=== PATIENT | female | born 1935 | race Caucasian/White ===

== ENCOUNTER 2017-10-12 07:39 | Inpatient (IN) ==
[2017-10-12 08:06] LABS: Basophils # 0.1 10*3/uL (0.0-0.2); Basophils % 0.5 % (0.0-0.8); Eosinophils # 0.1 10*3/uL (0.0-0.87); Eosinophils % 0.5 % (0.00-10.9); Hematocrit 40.8 VOL% (35.7-47.0); Hemoglobin 13.9 GM/DL (12.0-16.0); Immature Granulocytes % 0.2 %; Immature Granulocytes Absolute 0.03 #; Lymphocytes # 1.9 10*3/uL (1.4-4.0); Mean Corpuscular HGB Conc 34.1 GM/DL (32-36); Mean Corpuscular Hemoglobin 33 PG (27-34); Mean Corpuscular Volume 96.2 FL (87-102); Mean Platelet Volume 10.3 FL (9.6-12.0); Monocytes # 1.9 10*3/uL (0.11-0.8); Monocytes % 14.9 % (1.7-12.7); Neutrophils # 8.7 10*3/uL (1.4-7.4); Neutrophils % 68.9 % (38.7-73.9); Platelet Count 220 T/CUMM (130-400); Red Blood Count 4.24 MC/CUMM (3.8-5.5); Red Cell Distribution Width 13.9 % (9.3-17.3); White Blood Count 12.6 T/CUMM (4-12)
[2017-10-12 08:27] LABS: Calcium 9.3 MG/DL (8.5-10.1); Osmolality,Calculated 277.7 MOS/KG (273-304); Potassium 4.1 MMOL/L (3.5-5.1)
[2017-10-12 08:43] LABS: Amorphous Crystals,Urine Occasional /HPF (Few); Apearance,Urine CLEAR (Clear); Bacteria,Urine Occasional /HPF (Few); Bilirubin,Urine Negative (Negative); Blood, Urine Moderate mg/dL (Negative); Glucose,Urine (UA) Negative (Negative); Ketones,Urine Negative (Negative); Mucus,Urine Occasional /LPF (Occasional); Nitrite,Urine Positive (Negative); Protein,Urine Negative; RBC,Urine 9 /HPF (0-4); Squamous Epithelial Cell,Urine Occasional /HPF (0-10); Urine Color Yellow (Yellow); Urine Urobilinogen < 2.0 EU/DL (0.2-1.0); WBC,Urine 9 /HPF (0-6)
[2017-10-12] MEDS ORDERED: DILTIAZEM 50 MG/10 ML VIAL IV STA ×2 (10:02→10:57)
[2017-10-12] MEDS ORDERED: DILTIAZEM INJ 100 MG in SODIUM CHLORIDE 0.9% 100 ML IV SCH (10:30)
[2017-10-12] MEDS ORDERED: ONDANSETRON 4 MG/2 ML VIAL IV PRN (10:58)
[2017-10-12] MEDS ORDERED: ACETAMINOPHEN 325 MG TABLET PO PRN (10:58)
[2017-10-12 12:11] LABS: Alanine Aminotransferase 20 U/L (13-56); Albumin 3.5 G/DL (3.4-5.0); Alkaline Phosphatase 120 U/L (45-117); Aspartate Amino Transferase 19 U/L (0-37); Bilirubin,Total < 0.39 MG/DL (0.2-1.0); Blood Urea Nitrogen 16 MG/DL (7-18); Calcium 9.3 MG/DL (8.5-10.1); Glucose 110 MG/DL (74-106); Potassium 4.2 MMOL/L (3.5-5.1); Sodium 136 MMOL/L (136-145)
[2017-10-12 12:21] LABS: Barbiturates Screen,Urine Negative (Negative); Benzodiazepines Screen,Urine Positive (Negative); Cannabinoid Screen,Urine Negative (Negative); Opiate Screen,Urine Negative (Negative); Phencyclidine Screen,Urine Negative (Negative)
[2017-10-12] MEDS: SODIUM CHLORIDE 0.45% 1,000 ML IV SCH (12:47)
[2017-10-12] MEDS ORDERED: traMADol 50 MG TABLET PO PRN (13:49)
[2017-10-12] MEDS: MUPIROCIN 2% OINT 22 GM TUBE TOP SCH ×2 (16:01→21:03)
[2017-10-12] MEDS: POTASSIUM CHLORIDE 8 MEQ CAPSULE PO SCH ×2 (16:03→21:02)
[2017-10-12] MEDS: ACETAMINOPHEN 325 MG TABLET PO PRN (16:06)
[2017-10-12] MEDS: CALCIUM (CARBONATE)/VITAMIN D 600 MG-400 UNIT TABLET PO SCH (18:41)
[2017-10-12] MEDS ORDERED: APIXABAN 2.5 MG TABLET PO SCH (21:00)
[2017-10-12] MEDS: APIXABAN 5 MG TABLET PO SCH (21:02)
[2017-10-12] MEDS: DONEPEZIL 10 MG TABLET PO SCH (21:02)
[2017-10-12] MEDS: DOCUSATE SODIUM 100 MG CAPSULE PO SCH (21:02)
[2017-10-12] MEDS: METHENAMINE HIPPURATE 1 GM TABLET PO SCH (21:02)
[2017-10-12] MEDS: CLORAZEPATE 7.5 MG TABLET PO SCH (21:02)
[2017-10-12] MEDS: SOTALOL 80 MG TABLET PO SCH (21:03)
[2017-10-13 06:28] LABS: Basophils % 0.4 % (0.0-0.8); Eosinophils # 0.1 10*3/uL (0.0-0.87); Hematocrit 35.5 VOL% (35.7-47.0); Hemoglobin 11.8 GM/DL (12.0-16.0); Immature Granulocytes % 0.2 %; Immature Granulocytes Absolute 0.02 #; Lymphocytes # 2.5 10*3/uL (1.4-4.0); Lymphocytes % 24.6 % (21.3-54.2); Mean Corpuscular HGB Conc 33.2 GM/DL (32-36); Mean Corpuscular Hemoglobin 32 PG (27-34); Mean Platelet Volume 10.8 FL (9.6-12.0); Monocytes # 2.1 10*3/uL (0.11-0.8); Monocytes % 21.1 % (1.7-12.7); Neutrophils # 5.3 10*3/uL (1.4-7.4); Neutrophils % 52.7 % (38.7-73.9); Platelet Count 199 T/CUMM (130-400); Red Blood Count 3.66 MC/CUMM (3.8-5.5); Red Cell Distribution Width 13.8 % (9.3-17.3)
[2017-10-13 06:41] LABS: Calcium 8.5 MG/DL (8.5-10.1); Potassium 4.2 MMOL/L (3.5-5.1)
[2017-10-13 06:57] LABS: Band Neutrophils 1 % (0-10); Hypochromasia 1+; Lymphocytes 29 % (20-55); Platelet Estimate Adequate; Segmented Neutrophils 55 % (50-85); Total Cells Counted 100
[2017-10-13] MEDS: ACETAMINOPHEN 325 MG TABLET PO PRN ×2 (06:59→12:33)
[2017-10-13] MEDS ORDERED: clonazePAM 0.5 MG TABLET PO SCH (09:00)
[2017-10-13] MEDS ORDERED: ASPIRIN EC 81 MG TABLET PO SCH (09:00)
[2017-10-13] MEDS ORDERED: buPROPion XL 150 MG TABLET PO SCH (09:00)
[2017-10-13] MEDS ORDERED: SOTALOL 80 MG TABLET PO SCH (09:00)
[2017-10-13] MEDS: CLORAZEPATE 7.5 MG TABLET PO SCH ×2 (10:35→21:42)
[2017-10-13] MEDS: METHENAMINE HIPPURATE 1 GM TABLET PO SCH ×2 (10:36→21:42)
[2017-10-13] MEDS: POTASSIUM CHLORIDE 8 MEQ CAPSULE PO SCH ×3 (10:36→21:43)
[2017-10-13] MEDS: LISINOPRIL 10 MG TABLET PO SCH (10:36)
[2017-10-13] MEDS: PANTOPRAZOLE 40 MG TABLET PO SCH (10:37)
[2017-10-13] MEDS: CALCIUM (CARBONATE)/VITAMIN D 600 MG-400 UNIT TABLET PO SCH ×2 (10:42→18:44)
[2017-10-13] MEDS: SERTRALINE 100 MG TABLET PO SCH (10:42)
[2017-10-13] MEDS: risperiDONE 1 MG TABLET PO SCH (10:42)
[2017-10-13] MEDS: DOCUSATE SODIUM 100 MG CAPSULE PO SCH ×2 (10:46→21:42)
[2017-10-13] MEDS: APIXABAN 2.5 MG TABLET PO SCH ×2 (10:46→21:42)
[2017-10-13] MEDS: POLYETHYLENE GLYCOL POWDER 17 GM PACK PO SCH (10:47)
[2017-10-13] MEDS: DILTIAZEM CD 120 MG CAPSULE PO SCH (10:54)
[2017-10-13] MEDS: MUPIROCIN 2% OINT 22 GM TUBE TOP SCH ×3 (11:00→21:42)
[2017-10-13] MEDS ORDERED: POLYETHYLENE GLYCOL POWDER 17 GM PACK PO PRN (11:00)
[2017-10-13] MEDS: SODIUM CHLORIDE 0.45% 1,000 ML IV SCH (18:45)
[2017-10-13] MEDS: buPROPion XL 150 MG TABLET PO SCH (21:42)
[2017-10-13] MEDS: DONEPEZIL 10 MG TABLET PO SCH (21:42)
[2017-10-13] MEDS: ASPIRIN EC 81 MG TABLET PO SCH (21:42)
[2017-10-13] MEDS: SOTALOL 80 MG TABLET PO SCH (21:43)
[2017-10-14] MEDS: ACETAMINOPHEN 325 MG TABLET PO PRN ×2 (06:27→18:00)
[2017-10-14] MEDS: POTASSIUM CHLORIDE 8 MEQ CAPSULE PO SCH ×3 (09:09→20:58)
[2017-10-14] MEDS: CALCIUM (CARBONATE)/VITAMIN D 600 MG-400 UNIT TABLET PO SCH ×2 (09:09→17:25)
[2017-10-14] MEDS: PANTOPRAZOLE 40 MG TABLET PO SCH (09:10)
[2017-10-14] MEDS: METHENAMINE HIPPURATE 1 GM TABLET PO SCH ×2 (09:10→20:52)
[2017-10-14] MEDS: CLORAZEPATE 7.5 MG TABLET PO SCH ×2 (09:10→20:49)
[2017-10-14] MEDS: APIXABAN 2.5 MG TABLET PO SCH ×2 (09:10→20:49)
[2017-10-14] MEDS: DOCUSATE SODIUM 100 MG CAPSULE PO SCH ×2 (09:11→20:50)
[2017-10-14] MEDS: SOTALOL 80 MG TABLET PO SCH ×2 (09:11→20:50)
[2017-10-14] MEDS: LISINOPRIL 10 MG TABLET PO SCH (09:11)
[2017-10-14] MEDS: SERTRALINE 100 MG TABLET PO SCH (09:12)
[2017-10-14] MEDS: DILTIAZEM CD 120 MG CAPSULE PO SCH (09:12)
[2017-10-14] MEDS: MUPIROCIN 2% OINT 22 GM TUBE TOP SCH ×3 (09:16→20:50)
[2017-10-14] MEDS: ASPIRIN EC 81 MG TABLET PO SCH (20:49)
[2017-10-14] MEDS: CIPROFLOXACIN 250 MG TABLET PO SCH (20:49)
[2017-10-14] MEDS: DONEPEZIL 10 MG TABLET PO SCH (20:50)
[2017-10-14] MEDS: clonazePAM 0.5 MG TABLET PO SCH (20:50)
[2017-10-14] MEDS: risperiDONE 1 MG TABLET PO SCH ×2 (20:57→21:07)
[2017-10-14] MEDS: buPROPion XL 150 MG TABLET PO SCH (21:06)
[2017-10-14] MEDS: POLYETHYLENE GLYCOL POWDER 17 GM PACK PO SCH (21:07)
[2017-10-14] MEDS: APIXABAN 5 MG TABLET PO SCH (21:07)
[2017-10-14] MEDS: SODIUM CHLORIDE 0.45% 1,000 ML IV SCH (23:15)
[2017-10-15 07:06] LABS: Calcium 8.7 MG/DL (8.5-10.1); Osmolality,Calculated 277.7 MOS/KG (273-304); Potassium 4.2 MMOL/L (3.5-5.1)
[2017-10-15] MEDS: SOTALOL 80 MG TABLET PO SCH ×2 (11:17→21:45)
[2017-10-15] MEDS: CALCIUM (CARBONATE)/VITAMIN D 600 MG-400 UNIT TABLET PO SCH ×2 (11:20→18:07)
[2017-10-15] MEDS: CLORAZEPATE 7.5 MG TABLET PO SCH ×2 (11:21→21:45)
[2017-10-15] MEDS: CIPROFLOXACIN 250 MG TABLET PO SCH ×2 (11:21→21:45)
[2017-10-15] MEDS: POTASSIUM CHLORIDE 8 MEQ CAPSULE PO SCH ×3 (11:21→21:44)
[2017-10-15] MEDS: LISINOPRIL 10 MG TABLET PO SCH (11:22)
[2017-10-15] MEDS: APIXABAN 2.5 MG TABLET PO SCH ×2 (11:22→21:44)
[2017-10-15] MEDS: DOCUSATE SODIUM 100 MG CAPSULE PO SCH ×2 (11:22→21:44)
[2017-10-15] MEDS: SERTRALINE 100 MG TABLET PO SCH (11:22)
[2017-10-15] MEDS: PANTOPRAZOLE 40 MG TABLET PO SCH (11:28)
[2017-10-15] MEDS: METHENAMINE HIPPURATE 1 GM TABLET PO SCH ×2 (11:29→21:45)
[2017-10-15] MEDS: DILTIAZEM CD 120 MG CAPSULE PO SCH (13:14)
[2017-10-15] MEDS: MUPIROCIN 2% OINT 22 GM TUBE TOP SCH ×3 (13:30→21:44)
[2017-10-15] MEDS ORDERED: MAGNESIUM SULF RIDER 50 ML IV ONE (17:55)
[2017-10-15] MEDS ORDERED: TUBERCULIN SKIN TEST 0.1 ML SYRINGE INTRADERM ONE (18:01)
[2017-10-15] MEDS ORDERED: MAGNESIUM SULF RIDER 2 GM in PREMIX 1 EACH IV PRN (18:02)
[2017-10-15] MEDS ORDERED: MAGNESIUM SULF RIDER 4 GM in PREMIX 1 EACH IV PRN (18:02)
[2017-10-15] MEDS: ACETAMINOPHEN 325 MG TABLET PO PRN (18:20)
[2017-10-15] MEDS: risperiDONE 1 MG TABLET PO SCH (21:44)
[2017-10-15] MEDS: DONEPEZIL 10 MG TABLET PO SCH (21:44)
[2017-10-15] MEDS: buPROPion XL 150 MG TABLET PO SCH (21:45)
[2017-10-15] MEDS: clonazePAM 0.5 MG TABLET PO SCH (21:45)
[2017-10-15] MEDS: ASPIRIN EC 81 MG TABLET PO SCH (21:45)
[2017-10-16] MEDS: SOTALOL 80 MG TABLET PO SCH (07:21)
[2017-10-16] MEDS: SODIUM CHLORIDE 0.45% 1,000 ML IV SCH (07:23)
[2017-10-16] MEDS ORDERED: TUBERCULIN SKIN TEST 0.1 ML SYRINGE INTRADERM ONE (08:00)
[2017-10-16] MEDS ORDERED: SOTALOL 80 MG TABLET PO SCH (09:00)
[2017-10-16] MEDS: CLORAZEPATE 7.5 MG TABLET PO SCH (09:39)
[2017-10-16] MEDS: CALCIUM (CARBONATE)/VITAMIN D 600 MG-400 UNIT TABLET PO SCH (09:39)
[2017-10-16] MEDS: METHENAMINE HIPPURATE 1 GM TABLET PO SCH (09:40)
[2017-10-16] MEDS: LISINOPRIL 10 MG TABLET PO SCH (09:40)
[2017-10-16] MEDS: SERTRALINE 100 MG TABLET PO SCH (09:40)
[2017-10-16] MEDS: POTASSIUM CHLORIDE 8 MEQ CAPSULE PO SCH (09:40)
[2017-10-16] MEDS: DOCUSATE SODIUM 100 MG CAPSULE PO SCH (09:40)
[2017-10-16] MEDS: PANTOPRAZOLE 40 MG TABLET PO SCH (09:40)
[2017-10-16] MEDS: APIXABAN 2.5 MG TABLET PO SCH (09:40)
[2017-10-16] MEDS: DILTIAZEM CD 120 MG CAPSULE PO SCH (09:41)
[2017-10-16] MEDS: MUPIROCIN 2% OINT 22 GM TUBE TOP SCH (09:41)
[2017-10-16] MEDS: CIPROFLOXACIN 250 MG TABLET PO SCH (09:41)
[2017-10-16 12:16] VITALS: BP 98/68
== END 2017-10-16 14:02 | DRG 309 ==
LOC: EDUNIT# → EDBD → N.ED 07:39 → N.EDINP 10:58 → N.TELEN 11:26
PROVIDERS: ADMIT Family Medicine; ATTEND Family Medicine

== ENCOUNTER 2017-10-25 22:06 | Inpatient (IN) ==
[2017-10-25 23:04] LABS: Basophils # 0.1 10*3/uL (0.0-0.2); Basophils % 0.4 % (0.0-0.8); Eosinophils # 0.2 10*3/uL (0.0-0.87); Eosinophils % 0.7 % (0.00-10.9); Hematocrit 34.9 VOL% (35.7-47.0); Hemoglobin 11.3 GM/DL (12.0-16.0); Immature Granulocytes % 0.5 %; Immature Granulocytes Absolute 0.11 #; Lymphocytes # 1.2 10*3/uL (1.4-4.0); Lymphocytes % 5.3 % (21.3-54.2); Mean Corpuscular HGB Conc 32.4 GM/DL (32-36); Mean Corpuscular Hemoglobin 32 PG (27-34); Mean Corpuscular Volume 99.7 FL (87-102); Mean Platelet Volume 9.8 FL (9.6-12.0); Monocytes # 1.6 10*3/uL (0.11-0.8); Monocytes % 7.1 % (1.7-12.7); Neutrophils # 19.7 10*3/uL (1.4-7.4); Platelet Count 439 T/CUMM (130-400); Red Cell Distribution Width 13.2 % (9.3-17.3); White Blood Count 22.9 T/CUMM (4-12)
[2017-10-25 23:24] LABS: Alanine Aminotransferase 17 U/L (13-56); Albumin 2.7 G/DL (3.4-5.0); Alkaline Phosphatase 106 U/L (45-117); Aspartate Amino Transferase 16 U/L (0-37); Bilirubin,Total < 0.39 MG/DL (0.2-1.0); Calcium 8.3 MG/DL (8.5-10.1); Total Protein 7.2 G/DL (6.4-8.3)
[2017-10-25 23:25] LABS: Blood Urea Nitrogen 24 MG/DL (7-18); Glucose 142 MG/DL (74-106); Osmolality,Calculated 284.4 MOS/KG (273-304); Potassium 4.2 MMOL/L (3.5-5.1); Sodium 140 MMOL/L (136-145)
[2017-10-25] MEDS ORDERED: VANCOMYCIN INJ 1,250 MG in SODIUM CHLORIDE 0.9% 250 ML IV STA (23:46)
[2017-10-25] MEDS ORDERED: CEFEPIME 2,000 MG in SODIUM CHLORIDE 0.9% 100 ML IV STA (23:46)
[2017-10-25] MEDS ORDERED: SODIUM CHLORIDE 0.9% 2,000 ML IV STA (23:46)
[2017-10-25] MEDS ORDERED: VANCOMYCIN INJ 1,000 MG in SODIUM CHLORIDE 0.9% 250 ML IV STA (23:53)
[2017-10-26 00:52] LABS: Lactic Acid 1.6 MMOL/L (0.4-2.0)
[2017-10-26] MEDS ORDERED: ONDANSETRON 4 MG/2 ML VIAL IV PRN (01:53)
[2017-10-26] MEDS ORDERED: ACETAMINOPHEN 325 MG TABLET PO PRN (01:53)
[2017-10-26 03:23] LABS: Lymphocytes 6 % (20-55); Platelet Estimate Normal; Segmented Neutrophils 86 % (50-85); Total Cells Counted 100
[2017-10-26 03:58] LABS: Apearance,Urine Slightly Hazy (Clear); Bacteria,Urine Occasional /HPF (Few); Bilirubin,Urine Negative (Negative); Blood, Urine Large mg/dL (Negative); Glucose,Urine (UA) Negative (Negative); Ketones,Urine Negative (Negative); Mucus,Urine Occasional /LPF (Occasional); Nitrite,Urine Negative (Negative); Protein,Urine Negative; RBC,Urine 70 /HPF (0-4); Squamous Epithelial Cell,Urine Occasional /HPF (0-10); Urine Color Yellow (Yellow); Urine Specific Gravity 1.014 (1.001-1.035); Urine Urobilinogen < 2.0 EU/DL (0.2-1.0); WBC,Urine 50 /HPF (0-6)
[2017-10-26] MEDS: PANTOPRAZOLE 40 MG TABLET PO SCH (08:24)
[2017-10-26] MEDS: DOCUSATE SODIUM 100 MG CAPSULE PO SCH ×2 (08:24→21:26)
[2017-10-26] MEDS ORDERED: CEFEPIME 2,000 MG in SODIUM CHLORIDE 0.9% 100 ML IV SCH (10:00)
[2017-10-26] MEDS ORDERED: cefTRIAXone 1,000 MG VIAL IV SCH (10:30)
[2017-10-26] MEDS: cefTRIAXone 1,000 MG in SYRINGE 1 EACH IV SCH (12:34)
[2017-10-26] MEDS: clonazePAM 0.5 MG TABLET PO SCH (12:34)
[2017-10-26] MEDS: FUROSEMIDE 20 MG TABLET PO SCH (15:23)
[2017-10-26] MEDS: POTASSIUM CHLORIDE 8 MEQ CAPSULE PO SCH ×2 (15:23→21:26)
[2017-10-26] MEDS: MUPIROCIN 2% OINT 22 GM TUBE TOP SCH ×2 (15:24→21:25)
[2017-10-26] MEDS: SOTALOL 80 MG TABLET PO SCH (21:25)
[2017-10-26] MEDS: CLORAZEPATE 7.5 MG TABLET PO SCH (21:26)
[2017-10-26] MEDS: DONEPEZIL 10 MG TABLET PO SCH (21:26)
[2017-10-26] MEDS: risperiDONE 1 MG TABLET PO SCH (21:26)
[2017-10-26] MEDS: APIXABAN 2.5 MG TABLET PO SCH (21:26)
[2017-10-26] MEDS: METHENAMINE HIPPURATE 1 GM TABLET PO SCH (21:26)
[2017-10-27 04:26] LABS: Basophils # 0.1 10*3/uL (0.0-0.2); Basophils % 0.5 % (0.0-0.8); Eosinophils # 0.3 10*3/uL (0.0-0.87); Eosinophils % 2.5 % (0.00-10.9); Hematocrit 31.4 VOL% (35.7-47.0); Hemoglobin 9.9 GM/DL (12.0-16.0); Immature Granulocytes % 0.3 %; Immature Granulocytes Absolute 0.04 #; Lymphocytes % 17.5 % (21.3-54.2); Mean Corpuscular HGB Conc 31.5 GM/DL (32-36); Mean Corpuscular Hemoglobin 32 PG (27-34); Mean Corpuscular Volume 100.3 FL (87-102); Monocytes # 1.5 10*3/uL (0.11-0.8); Monocytes % 13.2 % (1.7-12.7); Neutrophils # 7.7 10*3/uL (1.4-7.4); Platelet Count 383 T/CUMM (130-400); Red Blood Count 3.13 MC/CUMM (3.8-5.5); Red Cell Distribution Width 13.3 % (9.3-17.3); White Blood Count 11.7 T/CUMM (4-12)
[2017-10-27 04:42] LABS: Osmolality,Calculated 283.1 MOS/KG (273-304); Potassium 3.9 MMOL/L (3.5-5.1)
[2017-10-27] MEDS ORDERED: FUROSEMIDE 20 MG/2 ML VIAL IV ONE (08:18)
[2017-10-27] MEDS: CLORAZEPATE 7.5 MG TABLET PO SCH ×2 (09:04→20:52)
[2017-10-27] MEDS: clonazePAM 0.5 MG TABLET PO SCH (09:05)
[2017-10-27] MEDS: METHENAMINE HIPPURATE 1 GM TABLET PO SCH ×2 (09:06→20:52)
[2017-10-27] MEDS: POTASSIUM CHLORIDE 8 MEQ CAPSULE PO SCH ×3 (09:06→20:52)
[2017-10-27] MEDS: PANTOPRAZOLE 40 MG TABLET PO SCH (09:07)
[2017-10-27] MEDS: SERTRALINE 100 MG TABLET PO SCH (09:07)
[2017-10-27] MEDS: DOCUSATE SODIUM 100 MG CAPSULE PO SCH ×2 (09:07→20:52)
[2017-10-27] MEDS: buPROPion XL 150 MG TABLET PO SCH (09:07)
[2017-10-27] MEDS: APIXABAN 2.5 MG TABLET PO SCH ×2 (09:07→20:53)
[2017-10-27] MEDS: LISINOPRIL 10 MG TABLET PO SCH (09:08)
[2017-10-27] MEDS: FUROSEMIDE 20 MG TABLET PO SCH ×2 (09:08→15:14)
[2017-10-27] MEDS: SOTALOL 80 MG TABLET PO SCH ×2 (09:08→20:52)
[2017-10-27] MEDS: MUPIROCIN 2% OINT 22 GM TUBE TOP SCH ×3 (09:08→21:02)
[2017-10-27] MEDS: DILTIAZEM CD 120 MG CAPSULE PO SCH (09:17)
[2017-10-27] MEDS: cefTRIAXone 1,000 MG in SYRINGE 1 EACH IV SCH (13:29)
[2017-10-27] MEDS: DONEPEZIL 10 MG TABLET PO SCH (20:52)
[2017-10-27] MEDS: risperiDONE 1 MG TABLET PO SCH (20:52)
[2017-10-28] MEDS: SERTRALINE 100 MG TABLET PO SCH (08:29)
[2017-10-28] MEDS: buPROPion XL 150 MG TABLET PO SCH (08:29)
[2017-10-28] MEDS: METHENAMINE HIPPURATE 1 GM TABLET PO SCH ×2 (08:29→20:52)
[2017-10-28] MEDS: SOTALOL 80 MG TABLET PO SCH ×2 (08:29→20:52)
[2017-10-28] MEDS: APIXABAN 2.5 MG TABLET PO SCH ×2 (08:29→20:52)
[2017-10-28] MEDS: DILTIAZEM CD 120 MG CAPSULE PO SCH (08:29)
[2017-10-28] MEDS: DOCUSATE SODIUM 100 MG CAPSULE PO SCH ×2 (08:30→20:52)
[2017-10-28] MEDS: PANTOPRAZOLE 40 MG TABLET PO SCH (08:30)
[2017-10-28] MEDS: POTASSIUM CHLORIDE 8 MEQ CAPSULE PO SCH ×3 (08:30→20:52)
[2017-10-28] MEDS: CLORAZEPATE 7.5 MG TABLET PO SCH ×2 (08:30→20:51)
[2017-10-28] MEDS: LISINOPRIL 10 MG TABLET PO SCH (08:30)
[2017-10-28] MEDS: FUROSEMIDE 20 MG TABLET PO SCH ×2 (08:30→15:05)
[2017-10-28] MEDS: clonazePAM 0.5 MG TABLET PO SCH (08:30)
[2017-10-28] MEDS: MUPIROCIN 2% OINT 22 GM TUBE TOP SCH ×3 (08:31→20:53)
[2017-10-28] MEDS: cefTRIAXone 1,000 MG in SYRINGE 1 EACH IV SCH (11:17)
[2017-10-28] MEDS: risperiDONE 1 MG TABLET PO SCH (20:52)
[2017-10-28] MEDS: DONEPEZIL 10 MG TABLET PO SCH (20:52)
[2017-10-29 05:25] LABS: Basophils # 0.1 10*3/uL (0.0-0.2); Basophils % 0.4 % (0.0-0.8); Eosinophils # 0.3 10*3/uL (0.0-0.87); Hemoglobin 10.2 GM/DL (12.0-16.0); Immature Granulocytes % 0.7 %; Immature Granulocytes Absolute 0.09 #; Lymphocytes # 2.1 10*3/uL (1.4-4.0); Lymphocytes % 15.8 % (21.3-54.2); Mean Corpuscular HGB Conc 31.9 GM/DL (32-36); Mean Corpuscular Hemoglobin 32 PG (27-34); Mean Corpuscular Volume 100.3 FL (87-102); Mean Platelet Volume 10.4 FL (9.6-12.0); Monocytes # 2.8 10*3/uL (0.11-0.8); Monocytes % 20.6 % (1.7-12.7); Neutrophils # 8.2 10*3/uL (1.4-7.4); Neutrophils % 60.5 % (38.7-73.9); Platelet Count 389 T/CUMM (130-400); Red Blood Count 3.19 MC/CUMM (3.8-5.5); Red Cell Distribution Width 13.5 % (9.3-17.3); White Blood Count 13.6 T/CUMM (4-12)
[2017-10-29 05:52] LABS: Eosinophils 2 % (0-10); Hypochromasia 1+; Lymphocytes 18 % (20-55); Platelet Estimate Adequate; Segmented Neutrophils 55 % (50-85); Total Cells Counted 100
[2017-10-29 05:59] LABS: Calcium 8.1 MG/DL (8.5-10.1); Osmolality,Calculated 284.1 MOS/KG (273-304); Potassium 3.8 MMOL/L (3.5-5.1)
[2017-10-29 06:00] LABS: Calcium 8.1 MG/DL (8.5-10.1); Osmolality,Calculated 280.4 MOS/KG (273-304); Potassium 3.8 MMOL/L (3.5-5.1)
[2017-10-29] MEDS: clonazePAM 0.5 MG TABLET PO SCH (10:06)
[2017-10-29] MEDS: LISINOPRIL 10 MG TABLET PO SCH (10:07)
[2017-10-29] MEDS: PANTOPRAZOLE 40 MG TABLET PO SCH (10:07)
[2017-10-29] MEDS: POTASSIUM CHLORIDE 8 MEQ CAPSULE PO SCH (10:07)
[2017-10-29] MEDS: APIXABAN 2.5 MG TABLET PO SCH (10:07)
[2017-10-29] MEDS: CLORAZEPATE 7.5 MG TABLET PO SCH (10:07)
[2017-10-29] MEDS: SOTALOL 80 MG TABLET PO SCH (10:07)
[2017-10-29] MEDS: buPROPion XL 150 MG TABLET PO SCH (10:07)
[2017-10-29] MEDS: SERTRALINE 100 MG TABLET PO SCH (10:08)
[2017-10-29] MEDS: DILTIAZEM CD 120 MG CAPSULE PO SCH (10:08)
[2017-10-29] MEDS: FUROSEMIDE 20 MG TABLET PO SCH (10:08)
[2017-10-29] MEDS: METHENAMINE HIPPURATE 1 GM TABLET PO SCH (10:08)
[2017-10-29] MEDS: MUPIROCIN 2% OINT 22 GM TUBE TOP SCH (10:14)
[2017-10-29] MEDS: DOCUSATE SODIUM 100 MG CAPSULE PO SCH (10:23)
[2017-10-29 11:19] VITALS: BP 139/67
[2017-10-29] MEDS: cefTRIAXone 1,000 MG in SYRINGE 1 EACH IV SCH (11:45)
== END 2017-10-29 13:40 | DRG 292 ==
LOC: EDBD → EDUNIT# → N.ED 22:06 → N.EDINP 10-26 01:53 → N.CC 10-26 02:32 → N.3E 10-27 16:26
PROVIDERS: ADMIT Family Medicine; ATTEND Family Medicine

== ENCOUNTER 2019-04-29 22:16 | Inpatient (IN) ==
[2019-04-29] MEDS ORDERED: LEVOFLOXACIN INJ 500 MG in PREMIX 1 EACH IV STA (23:07)
[2019-04-29] MEDS ORDERED: ONDANSETRON 4 MG/2 ML VIAL IV STA (23:07)
[2019-04-29] MEDS ORDERED: SODIUM CHLORIDE 0.9% 500 ML IV STA (23:07)
[2019-04-29 23:16] LABS: Basophils % 0.2 % (0.0-0.8); Eosinophils # 0.3 10*3/uL (0.0-0.87); Eosinophils % 1.7 % (0.00-10.9); Hematocrit 37.1 VOL% (35.7-47.0); Immature Granulocytes % 0.9 %; Immature Granulocytes Absolute 0.14 #; Lymphocytes # 1.5 10*3/uL (1.4-4.0); Lymphocytes % 9.1 % (21.3-54.2); Mean Corpuscular HGB Conc 32.3 GM/DL (32-36); Mean Corpuscular Volume 104.8 FL (87-102); Mean Platelet Volume 11.4 FL (9.6-12.0); Monocytes % 11.7 % (1.7-12.7); Neutrophils % 76.4 % (38.7-73.9); Platelet Count 161 T/CUMM (130-400); Red Blood Count 3.54 MC/CUMM (3.8-5.5); Red Cell Distribution Width 12.7 % (9.3-17.3); White Blood Count 16.4 T/CUMM (4-12)
[2019-04-29 23:24] LABS: INR 1.1; PT Patient Result 12.1 SECS (9.6-12.2)
[2019-04-29] MEDS ORDERED: ALBUTEROL NEB SOLN 5 MG/ML 20 ML/BOTTLE CONT NEB SCH (23:30)
[2019-04-29 23:33] LABS: Albumin 3.1 G/DL (3.4-5.0); Bilirubin,Total 0.8 MG/DL (0.2-1.0); Calcium 8.6 MG/DL (8.5-10.1); Osmolality,Calculated 273.8 MOS/KG (273-304); Total Protein 7.3 G/DL (6.4-8.3)
[2019-04-30 00:28] LABS: Apearance,Urine CLOUDY (Clear); Bacteria,Urine Many /HPF (Few); Bilirubin,Urine Negative (Negative); Blood, Urine Large mg/dL (Negative); Glucose,Urine (UA) Negative (Negative); Ketones,Urine Negative (Negative); Mucus,Urine Many /LPF (Occasional); Nitrite,Urine Positive (Negative); Protein,Urine Negative; RBC,Urine 84 /HPF (0-4); Squamous Epithelial Cell,Urine Occasional /HPF (0-10); Urine Color Yellow (Yellow); Urine Specific Gravity 1.016 (1.001-1.035); Urine Urobilinogen < 2.0 EU/DL (0.2-1.0); WBC,Urine 100 /HPF (0-6)
[2019-04-30] MEDS ORDERED: ACETAMINOPHEN 325 MG TABLET PO PRN (00:45)
[2019-04-30] MEDS ORDERED: hydrALAZINE 20 MG/1 ML VIAL IV PRN (00:45)
[2019-04-30] MEDS ORDERED: ONDANSETRON 4 MG/2 ML VIAL IV PRN (00:45)
[2019-04-30] MEDS ORDERED: ZALEPLON 5 MG CAPSULE PO PRN (00:45)
[2019-04-30] MEDS ORDERED: guaiFENesin/DM ER 600-30 MG TABLET PO PRN (00:45)
[2019-04-30] MEDS ORDERED: DOCUSATE SODIUM 100 MG CAPSULE PO PRN (00:45)
[2019-04-30] MEDS ORDERED: NICOTINE 21 MG/24 HR PATCH TRANSDERM PRN (00:45)
[2019-04-30] MEDS ORDERED: PROMETHAZINE 25 MG/1 ML VIAL IM PRN (00:45)
[2019-04-30] MEDS ORDERED: ENOXAPARIN 40 MG/0.4 ML SYRINGE SUBCUT SCH (01:00)
[2019-04-30] MEDS ORDERED: ALBUTEROL 2.5 MG/3 ML NEB RESP TX PRN (01:00)
[2019-04-30] MEDS: SODIUM CHLORIDE 0.9% 1,000 ML IV SCH ×2 (02:10→18:09)
[2019-04-30] MEDS: ALBUTEROL/IPRATROPIUM 3 ML NEB RESP TX SCH ×4 (02:58→20:10)
[2019-04-30] MEDS: MEROPENEM 500 MG in SODIUM CHLORIDE 0.9% 100 ML IV SCH ×2 (04:05→09:11)
[2019-04-30] MEDS ORDERED: VANCOMYCIN INJ 1,750 MG in SODIUM CHLORIDE 0.9% 500 ML IV ONE (05:00)
[2019-04-30 05:03] LABS: Basophils # 0.1 10*3/uL (0.0-0.2); Basophils % 0.3 % (0.0-0.8); Eosinophils # 0.4 10*3/uL (0.0-0.87); Eosinophils % 2.5 % (0.00-10.9); Hematocrit 32.9 VOL% (35.7-47.0); Hemoglobin 10.9 GM/DL (12.0-16.0); Immature Granulocytes % 0.6 %; Immature Granulocytes Absolute 0.09 #; Lymphocytes # 2.6 10*3/uL (1.4-4.0); Lymphocytes % 18.1 % (21.3-54.2); Mean Corpuscular HGB Conc 33.1 GM/DL (32-36); Mean Corpuscular Volume 100.6 FL (87-102); Mean Platelet Volume 11.6 FL (9.6-12.0); Monocytes % 16.4 % (1.7-12.7); Neutrophils % 62.1 % (38.7-73.9); Platelet Count 96 T/CUMM (130-400); Red Blood Count 3.27 MC/CUMM (3.8-5.5); Red Cell Distribution Width 12.7 % (9.3-17.3); White Blood Count 14.6 T/CUMM (4-12)
[2019-04-30 05:15] LABS: Band Neutrophils 2 % (0-10); Eosinophils 1 % (0-10); Lymphocytes 17 % (20-55); Platelet Estimate Decreased; Segmented Neutrophils 67 % (50-85); Total Cells Counted 100
[2019-04-30 05:16] LABS: Hypochromasia 1+
[2019-04-30 05:25] LABS: Albumin 2.6 G/DL (3.4-5.0); Bilirubin,Total 0.4 MG/DL (0.2-1.0); Calcium 7.8 MG/DL (8.5-10.1); Osmolality,Calculated 277.4 MOS/KG (273-304); Total Protein 6.1 G/DL (6.4-8.3)
[2019-04-30] MEDS ORDERED: AZITHROMYCIN INJ 500 MG in SODIUM CHLORIDE 0.9% 250 ML IV SCH (08:00)
[2019-04-30] MEDS ORDERED: DILTIAZEM CD 120 MG CAPSULE PO SCH (09:00)
[2019-04-30] MEDS: APIXABAN 2.5 MG TABLET PO SCH ×2 (09:11→20:43)
[2019-04-30] MEDS: PANTOPRAZOLE 40 MG TABLET PO SCH (09:11)
[2019-04-30] MEDS ORDERED: MAGNESIUM SULF RIDER 4 GM in PREMIX 1 EACH IV PRN (11:23)
[2019-04-30] MEDS: cefTRIAXone 1,000 MG in SYRINGE 1 EACH IV SCH (11:55)
[2019-04-30] MEDS: DOXYCYCLINE HYCLATE INJ 100 MG in SODIUM CHLORIDE 0.9% 100 ML IV SCH (12:40)
[2019-04-30] MEDS: DONEPEZIL 10 MG TABLET PO SCH (20:43)
[2019-04-30] MEDS: SOTALOL 80 MG TABLET PO SCH (20:43)
[2019-04-30] MEDS ORDERED: VANCOMYCIN INJ 1,250 MG in SODIUM CHLORIDE 0.9% 250 ML IV SCH (23:00)
[2019-05-01] MEDS: ALBUTEROL/IPRATROPIUM 3 ML NEB RESP TX SCH ×2 (01:24→07:33)
[2019-05-01] MEDS: DOXYCYCLINE HYCLATE INJ 100 MG in SODIUM CHLORIDE 0.9% 100 ML IV SCH ×2 (05:57→21:15)
[2019-05-01 06:22] LABS: Basophils % 0.3 % (0.0-0.8); Eosinophils # 0.5 10*3/uL (0.0-0.87); Eosinophils % 5.1 % (0.00-10.9); Hematocrit 32.1 VOL% (35.7-47.0); Hemoglobin 10.2 GM/DL (12.0-16.0); Immature Granulocytes % 0.7 %; Immature Granulocytes Absolute 0.07 #; Lymphocytes # 1.7 10*3/uL (1.4-4.0); Lymphocytes % 16.8 % (21.3-54.2); Mean Corpuscular HGB Conc 31.8 GM/DL (32-36); Mean Corpuscular Volume 104.6 FL (87-102); Mean Platelet Volume 11.8 FL (9.6-12.0); Monocytes % 20.1 % (1.7-12.7); Platelet Count 133 T/CUMM (130-400); Red Blood Count 3.07 MC/CUMM (3.8-5.5); Red Cell Distribution Width 12.7 % (9.3-17.3); White Blood Count 9.9 T/CUMM (4-12)
[2019-05-01 06:52] LABS: Atypical Lymphocytes Few; Band Neutrophils 1 % (0-10); Eosinophils 6 % (0-10); Lymphocytes 12 % (20-55); Segmented Neutrophils 68 % (50-85); Total Cells Counted 100
[2019-05-01 06:53] LABS: Macrocytosis Slight; Platelet Estimate Adequate
[2019-05-01 07:05] LABS: Calcium 7.7 MG/DL (8.5-10.1); Osmolality,Calculated 273.5 MOS/KG (273-304)
[2019-05-01] MEDS: cefTRIAXone 1,000 MG in SYRINGE 1 EACH IV SCH (09:49)
[2019-05-01] MEDS: APIXABAN 2.5 MG TABLET PO SCH ×2 (09:50→21:15)
[2019-05-01] MEDS: SOTALOL 80 MG TABLET PO SCH ×2 (09:50→21:14)
[2019-05-01] MEDS: PANTOPRAZOLE 40 MG TABLET PO SCH (09:50)
[2019-05-01] MEDS: MAGNESIUM SULF RIDER 2 GM in PREMIX 1 EACH IV PRN (10:08)
[2019-05-01] MEDS: DONEPEZIL 10 MG TABLET PO SCH (21:15)
[2019-05-02] MEDS: CLINDAMYCIN INJ 600 MG in PREMIX 1 EACH IV SCH ×4 (00:43→23:57)
[2019-05-02 06:10] LABS: Basophils % 0.3 % (0.0-0.8); Eosinophils # 0.3 10*3/uL (0.0-0.87); Hematocrit 34.4 VOL% (35.7-47.0); Hemoglobin 11.4 GM/DL (12.0-16.0); Immature Granulocytes % 0.5 %; Immature Granulocytes Absolute 0.05 #; Lymphocytes # 2.5 10*3/uL (1.4-4.0); Lymphocytes % 23.7 % (21.3-54.2); Mean Corpuscular HGB Conc 33.1 GM/DL (32-36); Mean Corpuscular Volume 101.8 FL (87-102); Mean Platelet Volume 12.2 FL (9.6-12.0); Monocytes % 25.7 % (1.7-12.7); Neutrophils % 46.8 % (38.7-73.9); Platelet Count 117 T/CUMM (130-400); Red Blood Count 3.38 MC/CUMM (3.8-5.5); Red Cell Distribution Width 12.5 % (9.3-17.3); White Blood Count 10.4 T/CUMM (4-12)
[2019-05-02 06:24] LABS: Calcium 7.9 MG/DL (8.5-10.1); Osmolality,Calculated 270.8 MOS/KG (273-304)
[2019-05-02 07:32] LABS: Band Neutrophils 1 % (0-10); Eosinophils 3 % (0-10); Hypochromasia 1+; Lymphocytes 25 % (20-55); Macrocytosis Slight; Segmented Neutrophils 54 % (50-85); Total Cells Counted 100
[2019-05-02 07:33] LABS: Platelet Estimate Adequate
[2019-05-02 07:34] LABS: Atypical Lymphocytes Few
[2019-05-02] MEDS: cefTRIAXone 1,000 MG in SYRINGE 1 EACH IV SCH (09:38)
[2019-05-02] MEDS: APIXABAN 2.5 MG TABLET PO SCH ×2 (09:39→20:19)
[2019-05-02] MEDS: SOTALOL 80 MG TABLET PO SCH ×2 (09:39→20:18)
[2019-05-02] MEDS: DILTIAZEM CD 120 MG CAPSULE PO SCH (09:39)
[2019-05-02] MEDS: SERTRALINE 100 MG TABLET PO SCH (09:40)
[2019-05-02] MEDS: PANTOPRAZOLE 40 MG TABLET PO SCH (09:40)
[2019-05-02] MEDS: DOXYCYCLINE HYCLATE INJ 100 MG in SODIUM CHLORIDE 0.9% 100 ML IV SCH (09:48)
[2019-05-02] MEDS: ALBUTEROL/IPRATROPIUM 3 ML NEB RESP TX PRN (13:09)
[2019-05-02] MEDS: DONEPEZIL 10 MG TABLET PO SCH (20:18)
[2019-05-02] MEDS: buPROPion 75 MG TABLET PO SCH (21:46)
[2019-05-02] MEDS: risperiDONE 0.5 MG TABLET PO SCH (21:47)
[2019-05-03 05:29] LABS: Basophils # 0.1 10*3/uL (0.0-0.2); Basophils % 0.4 % (0.0-0.8); Eosinophils # 0.4 10*3/uL (0.0-0.87); Eosinophils % 3.3 % (0.00-10.9); Hematocrit 38.5 VOL% (35.7-47.0); Hemoglobin 12.2 GM/DL (12.0-16.0); Immature Granulocytes % 0.6 %; Immature Granulocytes Absolute 0.07 #; Lymphocytes # 2.1 10*3/uL (1.4-4.0); Lymphocytes % 18.7 % (21.3-54.2); Mean Corpuscular HGB Conc 31.7 GM/DL (32-36); Mean Corpuscular Volume 104.6 FL (87-102); Mean Platelet Volume 10.9 FL (9.6-12.0); Monocytes % 24.3 % (1.7-12.7); Neutrophils % 52.7 % (38.7-73.9); Platelet Count 171 T/CUMM (130-400); Red Blood Count 3.68 MC/CUMM (3.8-5.5); Red Cell Distribution Width 12.5 % (9.3-17.3); White Blood Count 11.3 T/CUMM (4-12)
[2019-05-03 05:44] LABS: Calcium 8.5 MG/DL (8.5-10.1); Osmolality,Calculated 271.8 MOS/KG (273-304)
[2019-05-03 05:53] LABS: Atypical Lymphocytes Few; Eosinophils 5 % (0-10); Lymphocytes 24 % (20-55); Macrocytosis Slight; Platelet Estimate Adequate; Segmented Neutrophils 54 % (50-85); Total Cells Counted 100
[2019-05-03] MEDS: CLINDAMYCIN INJ 600 MG in PREMIX 1 EACH IV SCH ×3 (06:14→23:55)
[2019-05-03] MEDS ORDERED: METOPROLOL TARTRATE 5 MG/5 ML VIAL IV ONE (07:54)
[2019-05-03] MEDS ORDERED: POTASSIUM CHLORIDE RIDER 10 MEQ in PREMIX 1 EACH IV ONE (07:55)
[2019-05-03] MEDS: SOTALOL 80 MG TABLET PO SCH ×2 (08:55→20:32)
[2019-05-03] MEDS: APIXABAN 2.5 MG TABLET PO SCH ×2 (08:56→20:32)
[2019-05-03] MEDS: SERTRALINE 100 MG TABLET PO SCH (08:56)
[2019-05-03] MEDS: PANTOPRAZOLE 40 MG TABLET PO SCH (08:56)
[2019-05-03] MEDS: DILTIAZEM CD 120 MG CAPSULE PO SCH (08:56)
[2019-05-03] MEDS ORDERED: PHENOL 1.4% THROAT SPRAY 177 ML BOTTLE PO PRN (10:16)
[2019-05-03] MEDS: dilTIAZem Drip 125 MG/125 ML PREMIX IV SCH ×2 (10:29→20:33)
[2019-05-03] MEDS: DEXT 5% NACL 0.45% KCL 10 MEQ 10 MEQ/1,000 ML BAG IV SCH (11:25)
[2019-05-03] MEDS: MAGNESIUM SULF RIDER 2 GM in PREMIX 1 EACH IV PRN (11:25)
[2019-05-03] MEDS: TOBRAMYCIN INJ 320 MG in SODIUM CHLORIDE 0.9% 100 ML IV SCH (16:28)
[2019-05-03] MEDS: risperiDONE 0.5 MG TABLET PO SCH (20:32)
[2019-05-03] MEDS: buPROPion 75 MG TABLET PO SCH (20:32)
[2019-05-03] MEDS: DONEPEZIL 10 MG TABLET PO SCH (20:32)
[2019-05-04 04:55] LABS: Basophils % 0.4 % (0.0-0.8); Eosinophils # 0.6 10*3/uL (0.0-0.87); Eosinophils % 5.2 % (0.00-10.9); Hematocrit 35.9 VOL% (35.7-47.0); Hemoglobin 11.7 GM/DL (12.0-16.0); Immature Granulocytes % 0.6 %; Immature Granulocytes Absolute 0.06 #; Lymphocytes # 2.1 10*3/uL (1.4-4.0); Lymphocytes % 18.9 % (21.3-54.2); Mean Corpuscular HGB Conc 32.6 GM/DL (32-36); Mean Corpuscular Volume 101.7 FL (87-102); Mean Platelet Volume 10.7 FL (9.6-12.0); Monocytes % 24.8 % (1.7-12.7); Neutrophils % 50.1 % (38.7-73.9); Platelet Count 178 T/CUMM (130-400); Red Blood Count 3.53 MC/CUMM (3.8-5.5); Red Cell Distribution Width 12.5 % (9.3-17.3); White Blood Count 10.8 T/CUMM (4-12)
[2019-05-04 05:21] LABS: Calcium 7.9 MG/DL (8.5-10.1); Osmolality,Calculated 273.7 MOS/KG (273-304)
[2019-05-04 05:22] LABS: Eosinophils 7 % (0-10); Hypochromasia 1+; Lymphocytes 15 % (20-55); Macrocytosis Slight; Platelet Estimate Adequate; Segmented Neutrophils 59 % (50-85); Total Cells Counted 100
[2019-05-04 05:23] LABS: Atypical Lymphocytes Few
[2019-05-04] MEDS: CLINDAMYCIN INJ 600 MG in PREMIX 1 EACH IV SCH ×3 (06:16→22:04)
[2019-05-04] MEDS: DILTIAZEM CD 120 MG CAPSULE PO SCH ×3 (08:54→14:20)
[2019-05-04] MEDS: APIXABAN 2.5 MG TABLET PO SCH ×3 (08:55→21:10)
[2019-05-04] MEDS: PANTOPRAZOLE 40 MG TABLET PO SCH ×2 (08:55→11:03)
[2019-05-04] MEDS: SOTALOL 80 MG TABLET PO SCH ×3 (08:55→21:10)
[2019-05-04] MEDS: DEXT 5% NACL 0.45% KCL 10 MEQ 10 MEQ/1,000 ML BAG IV SCH (08:55)
[2019-05-04] MEDS: SERTRALINE 100 MG TABLET PO SCH ×2 (08:55→11:03)
[2019-05-04] MEDS ORDERED: ENOXAPARIN 80 MG/0.8 ML SYRINGE SUBCUT SCH (11:00)
[2019-05-04] MEDS ORDERED: LORazepam 2 MG/1 ML VIAL IV PRN (11:10)
[2019-05-04] MEDS: CLORAZEPATE 7.5 MG TABLET PO SCH ×2 (12:15→21:09)
[2019-05-04] MEDS: MAGNESIUM SULF RIDER 2 GM in PREMIX 1 EACH IV PRN (13:55)
[2019-05-04] MEDS: POTASSIUM CHLORIDE RIDER 20 MEQ in PREMIX 1 EACH IV PRN ×2 (15:31→17:30)
[2019-05-04] MEDS: TOBRAMYCIN INJ 320 MG in SODIUM CHLORIDE 0.9% 100 ML IV SCH (16:10)
[2019-05-04] MEDS: ALBUTEROL/IPRATROPIUM 3 ML NEB RESP TX PRN (18:20)
[2019-05-04] MEDS: risperiDONE 0.5 MG TABLET PO SCH (21:09)
[2019-05-04] MEDS: DONEPEZIL 10 MG TABLET PO SCH (21:10)
[2019-05-04] MEDS: buPROPion 75 MG TABLET PO SCH (21:10)
[2019-05-05] MEDS: dilTIAZem Drip 125 MG/125 ML PREMIX IV SCH (00:08)
[2019-05-05 04:32] LABS: Basophils % 0.4 % (0.0-0.8); Eosinophils # 0.5 10*3/uL (0.0-0.87); Eosinophils % 6.7 % (0.00-10.9); Hemoglobin 10.3 GM/DL (12.0-16.0); Immature Granulocytes % 0.6 %; Immature Granulocytes Absolute 0.05 #; Lymphocytes % 24.6 % (21.3-54.2); Mean Corpuscular HGB Conc 31.2 GM/DL (32-36); Mean Corpuscular Volume 105.8 FL (87-102); Mean Platelet Volume 11.3 FL (9.6-12.0); Monocytes % 28.3 % (1.7-12.7); Neutrophils % 39.4 % (38.7-73.9); Platelet Count 177 T/CUMM (130-400); Red Blood Count 3.12 MC/CUMM (3.8-5.5); Red Cell Distribution Width 12.7 % (9.3-17.3)
[2019-05-05 04:59] LABS: Calcium 8.2 MG/DL (8.5-10.1); Osmolality,Calculated 275.7 MOS/KG (273-304)
[2019-05-05 05:03] LABS: Eosinophils 7 % (0-10); Hypochromasia 1+; Lymphocytes 21 % (20-55); Platelet Estimate Adequate; Segmented Neutrophils 54 % (50-85); Total Cells Counted 100
[2019-05-05 05:04] LABS: Atypical Lymphocytes Few; Macrocytosis Slight
[2019-05-05] MEDS: DEXT 5% NACL 0.45% KCL 10 MEQ 10 MEQ/1,000 ML BAG IV SCH (05:54)
[2019-05-05] MEDS: CLINDAMYCIN INJ 600 MG in PREMIX 1 EACH IV SCH ×2 (06:04→15:29)
[2019-05-05] MEDS: SOTALOL 80 MG TABLET PO SCH (09:42)
[2019-05-05] MEDS: DILTIAZEM CD 120 MG CAPSULE PO SCH (09:42)
[2019-05-05] MEDS: PANTOPRAZOLE 40 MG TABLET PO SCH (09:42)
[2019-05-05] MEDS: CLORAZEPATE 7.5 MG TABLET PO SCH (09:42)
[2019-05-05] MEDS: APIXABAN 2.5 MG TABLET PO SCH (09:42)
[2019-05-05] MEDS: SERTRALINE 100 MG TABLET PO SCH (09:44)
[2019-05-05] MEDS: ALBUTEROL/IPRATROPIUM 3 ML NEB RESP TX PRN (10:55)
[2019-05-05 13:13] VITALS: BP 111/56
[2019-05-05] MEDS: TOBRAMYCIN INJ 320 MG in SODIUM CHLORIDE 0.9% 100 ML IV SCH (15:30)
== END 2019-05-05 16:39 | disposition home or self-care (01) | DRG 177 ==
LOC: EDBD → EDUNIT# → N.ED 22:16 → N.EDINP 04-30 00:45 → N.CC 04-30 01:19 → N.5E 04-30 13:06 → N.TELES 05-03 10:13
PROVIDERS: ADMIT Internal Medicine; ATTEND Internal Medicine